=== PATIENT | female | born 1985 | race Caucasian/White ===

== ENCOUNTER 2016-12-06 15:42 | Emergency (ER) | payer OTHER ==
[~2016-12-06] VITALS: Ht 162.6 cm; Wt 58.1 kg
[2016-12-06 15:47] VITALS: BP 101/79
--- NOTE | 2016-12-06 15:52 | NUR ---
Patient ambulated to bed 07.
[2016-12-06] MEDS ORDERED: NACL 0.9% 1,000 ML IV ONE ×2 (15:55→17:45)
--- NOTE | 2016-12-06 16:01 | NUR ---
PATIENT PRESENTS TO ED WITH FEVER STARTING LAST NIGHT WITH DIARRHEA, GEN WEAKNESS, AND MID BACK PAIN; DENIES N/V; SKIN IS PINK/WARM/DRY; AAOX4 WITH EVEN AND STEADY GAIT; LUNGS CLEAR BL; HR EVEN AND REGULAR; PT DENIES ANY CP, SOB, OR COUGH AT THIS TIME; PATIENT STATES PAIN OF 9/10 AT THIS TIME; VSS; PATIENT POSITIONED FOR COMFORT; HOB ELEVATED; BEDRAILS UP X2; BED DOWN. ER MD MADE AWARE OF PT STATUS.
[2016-12-06 16:31] LABS: HEMOGLOBIN 15.5 g/dL (12.0-16.0); MEAN CORPUSCULAR HEMOGLOBIN 29 pg (27-31); MEAN CORPUSCULAR HGB CONC 32 g/dL (33-37); MEAN CORPUSCULAR VOLUME 89 fL (80-94); PLATELET COUNT (AUTO) 213 K/uL (140-450); RED BLOOD CELL COUNT(AUTO) 5.39 MIL/uL (4.20-5.40); RED CELL DISTRIBUTION WIDTH 12.2 % (11.6-13.7); WHITE BLOOD COUNT (AUTO) 17.5 K/uL (4.8-10.8)
[2016-12-06 16:41] LABS: ANION GAP 12.7 (8-16); CALCIUM 8.6 mg/dL (8.5-10.1); CREATININE 0.8 mg/dL (0.6-1.3); POTASSIUM 3.7 mmol/L (3.5-5.1)
[2016-12-06 16:47] LABS: ALBUMIN 3.6 g/dL (3.4-5.0); TOTAL BILIRUBIN 1.1 mg/dL (0.0-1.0); TOTAL PROTEIN, SERUM 7.3 g/dL (6.4-8.2)
[2016-12-06 16:48] LABS: BAND % (MANUAL) 21 % (0-8); EOSINOPHILS % (MANUAL) 1 % (0-4); LYMPHOCYTES % (MANUAL) 1 % (20-46); MONOCYTES % (MANUAL) 5 % (5-12); NEUTROPHILS % (MANUAL) 72 (43-65); PLATELET ESTIMATE ADEQUATE
[2016-12-06] MEDS ORDERED: ACETAMINOPHEN EXTRA STRENGTH 500 MG TAB PO ONE (16:50)
--- NOTE | 2016-12-06 16:50 | NUR ---
COOLING MEASURES INITIATED, PER PT REQUEST, ICE CHIPS AND WATER PROVIDED AT BEDSIDE
--- NOTE | 2016-12-06 17:42 | NUR ---
Dr. Kasper evaluating patient at bedside.
[2016-12-06] MEDS ORDERED: KETOROLAC 30 MG/ML VIAL IVP ONE (17:45)
[2016-12-06 18:45] VITALS: BP 101/51
--- NOTE | 2016-12-06 18:45 | NUR ---
Patient discharged with v/s stable. Written and verbal after care instructions given and explained. Patient alert, oriented and verbalized understanding of instructions. Ambulatory with steady gait. All questions addressed prior to discharge. ID band removed. Patient advised to follow up with PMD. Rx of MOTRIN, IMODIUM, ZOFRAN given. Patient educated on indication of medication including possible reaction and side effects. Opportunity to ask questions provided and answered.
== END 2016-12-06 18:45 | disposition home or self-care (01) ==
LOC: MED 15:42
DX: R50.9 Fever, unspecified (principal); R19.7 Diarrhea, unspecified; M54.9 Dorsalgia, unspecified; J34.89 Other specified disorders of nose and nasal sinuses
CPT/HCPCS: 36415; 80053; 81002; 81025; 83690; 85025; 96361; 96374; 99285; J1885; J7030

== ENCOUNTER 2019-01-29 22:49 | Emergency (ER) | payer OTHER ==
[~2019-01-29] VITALS: Ht 162.6 cm; Wt 59.0 kg
[2019-01-29 22:50] VITALS: BP 145/90
--- NOTE | 2019-01-29 22:52 | NUR ---
TO LOBBY A/W BED, AMBULATORY
--- NOTE | 2019-01-29 23:18 | NUR ---
PT TO BED 9.
[2019-01-29] MEDS ORDERED: ERYTHROMYCIN 0.5% OPTH OINT 1 GM TUBE OP ONE (23:20)
--- NOTE | 2019-01-29 23:20 | NUR ---
ASSUMED CARE OF PT AT THIS TIME. C/O LEFT EYE REDNESS/SWELLING/IRRITATION X 1 DAY. AAOX4 WITH EVEN AND STEADY GAIT; PATIENT STATES PAIN OF 8/10; VSS; PATIENT POSITIONED FOR COMFORT; HOB ELEVATED; BEDRAILS UP X2; BED DOWN. ER MD MADE AWARE OF PT STATUS. WILL CONTINUE TO MONITOR.
[2019-01-30] VITALS: BP 145/90
== END 2019-01-30 | disposition home or self-care (01) ==
LOC: MED 22:49
DX: H10.9 Unspecified conjunctivitis (principal); B96.89 Other specified bacterial agents as the cause of diseases classified elsewhere
CPT/HCPCS: 99283

== ENCOUNTER 2023-03-06 12:37 | Emergency (ER) | payer MEDICAID, OTHER ==
[~2023-03-06] VITALS: Ht 162.6 cm; Wt 64.2 kg
[2023-03-06 13:09] VITALS: BP 140/87; PULSE 85; RESP 20; TEMP 97.9; O2SAT 100
[2023-03-06] MEDS ORDERED: TETRACAINE HCL/PF 0.5% OPTH 4 ML BTL OP ONE (13:40)
[2023-03-06] MEDS ORDERED: FLUORESCEIN OPTH STRIP 1 MG OP ONE (13:40)
--- NOTE | 2023-03-06 14:00 | NUR ---
37 Y/O FEMALE BIB SELF, PATIENT PRESENTS TO ED WITH WATERY, ITCHY EYES, TEARY, REDNESS FOR 1 WEEK. PT STATES IRRITATION STARTED IN RIGHT EYE AND PROGRESSED TO LEFT EYE. PT STATES SHE USES CONTACT LENS, BUT WEARS THEM FOR 1 MO AND WEARS THEM TO SLEEP. DENIES N/V/D; SKIN IS PINK/WARM/DRY; AAOX4 WITH EVEN AND STEADY GAIT; LUNGS CLEAR BL; HR EVEN AND REGULAR; PATIENT POSITIONED FOR COMFORT; HOB ELEVATED; BEDRAILS UP X2; BED DOWN. ER MD MADE AWARE OF PT STATUS. CALL LIGHT WITHIN REACH. PMH: DENIES DANNY
[2023-03-06] MEDS ORDERED: TOMOMETER 1 DEV DEV MC ONE (14:03)
[2023-03-06] MEDS ORDERED: CIPR5DRO6 BOTH EYES (14:16)
--- NOTE | 2023-03-06 14:43 | NUR ---
37YO F PRESENTS W/BILATERAL EYE SENSITIVITY, REDNESS, WATERY, ITCHY X 1 WK. RT EYE WORSENED YESTERDAY. PT STATES SHE WEARS CONTACT LENSES EVEN OVER NIGHT. PT DENIES BLURRY VISION, VISION CHANGES, FLU SYMPTOMS, INJURY. PT WEARING GLASSES DO TO LIGHT SENSITIVITY. SAFETY MAINTAINED, CALL LIGHT WITHIN REACH.
[2023-03-06 14:50] VITALS: O2SAT 100
--- NOTE | 2023-03-06 14:52 | NUR ---
Patient discharged with v/s stable. Written and verbal after care instructions given and explained. Patient alert, oriented and verbalized understanding of instructions. Ambulatory with steady gait. All questions addressed prior to discharge. ID band removed. Patient advised to follow up with PMD. Rx of CIPROFLOXACIN HCI given. Opportunity to ask questions provided and answered.
--- NOTE | 2023-03-06 14:55 | NUR ---
The patient's care was reviewed and supervised by Machelle Cortez, RN, RN.
== END 2023-03-06 14:52 | disposition home or self-care (01) ==
LOC: MED 12:37
DX: H53.8 Other visual disturbances (principal); Z79.899 Other long term (current) drug therapy
CPT/HCPCS: 99283

== ENCOUNTER 2023-03-26 07:38 | Emergency (ER) | payer MEDICAID ==
[~2023-03-26] VITALS: Ht 160 cm; Wt 61.2 kg
[~2023-03-26 07:38] MED LIST: CIPR5DRO6 BOTH EYES
[2023-03-26 08:03] VITALS: BP 143/92; PULSE 91; RESP 20; TEMP 97.3; O2SAT 100
[2023-03-26] MEDS ORDERED: FLUORESCEIN OPTH STRIP 1 MG OP ONE (08:40)
[2023-03-26] MEDS ORDERED: TETRACAINE HCL/PF 0.5% OPTH 4 ML BTL OP ONE (08:40)
[2023-03-26] MEDS ORDERED: HYDROcodone/APAP 5/325 MG 1 TAB TAB PO ONE (09:10)
[2023-03-26] MEDS ORDERED: TOBR5SOL38 RIGHT EYE (09:11)
[2023-03-26] MEDS ORDERED: NAPR-54 PO (09:11)
[2023-03-26] MEDS ORDERED: ACET-8905 PO (09:11)
[2023-03-26 09:47] VITALS: BP 144/93; PULSE 84; RESP 18; TEMP 97.5; O2SAT 99
== END 2023-03-26 09:59 | disposition home or self-care (01) ==
LOC: MED 07:38
DX: H10.9 Unspecified conjunctivitis (principal); Z79.899 Other long term (current) drug therapy
CPT/HCPCS: 90471; 90715; 99284

== ENCOUNTER 2023-08-16 03:08 | Emergency (ER) | payer MEDICAID ==
[~2023-08-16] VITALS: Ht 160 cm; Wt 65.8 kg
[~2023-08-16 03:08] MED LIST changes: +ACET-8905 PO; +NAPR-54 PO; +TOBR5SOL38 RIGHT EYE
[2023-08-16 03:10] VITALS: BP 140/90; PULSE 110; RESP 19; TEMP 208.4; TEMP 98; O2SAT 99
[2023-08-16 03:59] LABS: FLU A ANTIGEN negative (NEGATIVE); FLU B ANTIGEN NEGATIVE (NEGATIVE)
== END 2023-08-16 04:21 | disposition home or self-care (01) ==
LOC: MED 03:08
DX: R05.9 Cough, unspecified (principal); Z20.822 Contact with and (suspected) exposure to COVID-19; Z79.899 Other long term (current) drug therapy
CPT/HCPCS: 71045; 87426; 87804; 99284; Q0092